=== PATIENT | female | born 1940 | race Two or more races ===

== ENCOUNTER 2022-06-16 15:11 | Inpatient (IN) | payer OTHER ==
[2022-06-16] MEDS ORDERED: OMEPRAZOLE20 MG PO (15:30)
[2022-06-16] MEDS ORDERED: LOSARTAN-HCTZ1 EACH PO (15:30)
--- NOTE | 2022-06-16 15:31 | NUR ---
SE RECIBE PACIENTE ALERTA Y ORIENTADA X3. VIENE POR REFERIDO POR LA DRA. MARY GARCÍA. REFIERE DOLOR ABDOMINAL Y SE OBSERVA EL ABDOMEN DISTENTIDO.SE COLOCA EN HARI SENIA 8
--- NOTE | 2022-06-16 16:34 | NUR ---
MS VERA ORIENTA PTE SOBRE TX MEDICO EL CUAL REFIERE ENTENDER.SE LE EXTRAEN MUESTRAS BAJO MEDIDAS ASEPTICAS.SE CANALIZA Y SE ADMINISTRAN MEDICAMENTOS EMERALD ORDEN MEDICA,SE NOTIFICA CT PENDIENTE.
--- NOTE | 2022-06-16 18:18 | NUR ---
SE REALIZA ADMINISTRACION DE MEDICAMNETOS POR ORDEN MEDICA,. SE ORIENTA A PACIENTE SOBRE USO Y EFECTOS.
[2022-06-21] MEDS ORDERED: DICYCLOMINE HCL20 MG (08:24)
[2022-06-21] MEDS ORDERED: LOSARTAN POTASS50 MG (08:24)
[2022-06-21] MEDS ORDERED: PANTOPRAZOLE SO20 MG (08:25)
[2022-06-21] MEDS ORDERED: ONDANSETRON HCL4 MG (08:25)
[2022-06-21] MEDS ORDERED: FAMOTIDINE20 MG (08:25)
== END 2022-07-20 17:58 | disposition home or self-care (01) | DRG 329 ==
LOC: ER 15:11 → SURG 22:44 → SURH 22:44
PROVIDERS: Surgery; ADMIT Internal Medicine; ATTEND Internal Medicine
PROC: 02HV33Z Insertion of Infusion Device into Superior Vena Cava, Percutaneous Approach (ICD-10-PCS; 2022-06-18)
PROC: 0DBN8ZX Excision of Sigmoid Colon, Via Natural or Artificial Opening Endoscopic, Diagnostic (ICD-10-PCS; 2022-06-29)
PROC: 0D9670Z Drainage of Stomach with Drainage Device, Via Natural or Artificial Opening (ICD-10-PCS; 2022-07-01)
PROC: 0D1L4Z4 Bypass Transverse Colon to Cutaneous, Percutaneous Endoscopic Approach (ICD-10-PCS; principal; 2022-07-07 12:15)
DX: K56.600 Partial intestinal obstruction, unspecified as to cause (principal); G93.41 Metabolic encephalopathy; K65.1 Peritoneal abscess; B37.49 Other urogenital candidiasis; K57.20 Diverticulitis of large intestine with perforation and abscess without bleeding; E87.1 Hypo-osmolality and hyponatremia; F05 Delirium due to known physiological condition; C18.7 Malignant neoplasm of sigmoid colon; K63.5 Polyp of colon; I10 Essential (primary) hypertension; E66.01 Morbid (severe) obesity due to excess calories; R53.81 Other malaise; Z68.38 Body mass index [BMI] 38.0-38.9, adult

== ENCOUNTER 2022-08-13 10:51 | Inpatient (IN) | payer OTHER ==
[~2022-08-13] VITALS: Ht 162.6 cm; Wt 113.4 kg
[~2022-08-13 10:51] MED LIST: DICYCLOMINE HCL20 MG; FAMOTIDINE20 MG; LOSARTAN POTASS50 MG; LOSARTAN-HCTZ1 EACH PO; OMEPRAZOLE20 MG PO; ONDANSETRON HCL4 MG; PANTOPRAZOLE SO20 MG
[2022-08-13] MEDS ORDERED: CIPROFLOXACIN500 MG PO (11:03)
[2022-08-14] MEDS ORDERED: PANTOPRAZOLE SO40 MG (09:26)
[2022-08-14] MEDS ORDERED: LOSARTAN-HCTZ1 EACH (09:26)
[2022-08-14] MEDS ORDERED: BETAMETHASONE D15 G5 (09:26)
[2022-08-14] MEDS ORDERED: FAMOTIDINE20 MG (09:26)
[2022-08-14] MEDS ORDERED: ONDANSETRON HCL4 MG (09:26)
[2022-08-14] MEDS ORDERED: ZOLPIDEM TARTRA10 MG (09:26)
[2022-08-14] MEDS ORDERED: DICYCLOMINE HCL20 MG (09:26)
[2022-08-14] MEDS ORDERED: OMEPRAZOLE20 MG (09:26)
== END 2022-09-06 23:11 | disposition home or self-care (01) | DRG 391 ==
LOC: ER 10:51 → MEDI 17:50 → SEC-K 17:50 → MEDI 08-14 01:05
PROVIDERS: ADMIT Internal Medicine; ATTEND Internal Medicine
PROC: BW21ZZZ Computerized Tomography (CT Scan) of Abdomen and Pelvis (ICD-10-PCS; 2022-08-13)
PROC: 0W9J30Z Drainage of Pelvic Cavity with Drainage Device, Percutaneous Approach (ICD-10-PCS; principal; 2022-08-16)
PROC: BW24YZZ Computerized Tomography (CT Scan) of Chest and Abdomen using Other Contrast (ICD-10-PCS; 2022-08-16)
PROC: 02HV33Z Insertion of Infusion Device into Superior Vena Cava, Percutaneous Approach (ICD-10-PCS; 2022-08-19)
PROC: 0W9J30Z Drainage of Pelvic Cavity with Drainage Device, Percutaneous Approach (ICD-10-PCS; 2022-08-24)
PROC: BW21YZZ Computerized Tomography (CT Scan) of Abdomen and Pelvis using Other Contrast (ICD-10-PCS; 2022-08-30)
PROC: 0W9J3ZX Drainage of Pelvic Cavity, Percutaneous Approach, Diagnostic (ICD-10-PCS; 2022-09-05)
DX: K57.20 Diverticulitis of large intestine with perforation and abscess without bleeding (principal); K65.1 Peritoneal abscess; N39.0 Urinary tract infection, site not specified; E87.1 Hypo-osmolality and hyponatremia; K42.9 Umbilical hernia without obstruction or gangrene; I10 Essential (primary) hypertension; E11.9 Type 2 diabetes mellitus without complications; Z79.4 Long term (current) use of insulin; B96.20 Unspecified Escherichia coli [E. coli] as the cause of diseases classified elsewhere; B96.89 Other specified bacterial agents as the cause of diseases classified elsewhere; E66.01 Morbid (severe) obesity due to excess calories; Z20.822 Contact with and (suspected) exposure to COVID-19; Z93.3 Colostomy status

== ENCOUNTER 2023-08-16 13:00 | Inpatient (IN) | payer OTHER ==
[~2023-08-16] VITALS: Ht 162.6 cm; Wt 189.6 kg
[~2023-08-16 13:00] MED LIST changes: +BETAMETHASONE D15 G5; +CHILDREN'S ASPI81 MG PO; +CIPROFLOXACIN500 MG PO; +COZAAR25 MG PO; +HYOSCYAMINE0.125 M1 SL; +LIPITOR40 MG PO; +LOSARTAN-HCTZ1 EACH; +OMEPRAZOLE20 MG; +PANTOPRAZOLE SO40 MG; +ZOLPIDEM TARTRA10 MG
[2023-08-16 13:53] LABS: HEMATOCRIT 38.2 % (36.0-45.00); HEMOGLOBIN 12.4 g/dL (12.0-15.00); MEAN CELL VOLUME 85.6 fL (80.00-100.00); MEAN CORPUSCULAR HEMOGLOBIN 27.9 pg (27.00-32.0); MEAN CORPUSCULAR HGB CONC 32.6 g/dl (32.0-36.0); PLATELET COUNT 294 K/uL (150-450); RED BLOOD COUNT 4.46 M/uL (4.00-6.00); RED CELL DISTRIBUTION WIDTH 18.9 % (11.5-14.5)
[2023-08-16 14:15] LABS: CALCIUM 9.3 mg/dL (8.5-10.1); CREATININE SERUM 0.99 mg/dL (0.55-1.02); GFR 53.7; POTASSIUM 4.22 mEq/L (3.5-5.1)
[2023-08-16 15:38] LABS: PH,URINE 5.5 (5.0-8.0); URINE APPEARANCE Clear; URINE BACTERIA 439.6 uL (0.0-1933); URINE BILIRRUBIN Negative (NEGATIVE); URINE BLOOD Negative; URINE COLOR Yellow; URINE EPITHELIAL CELLS 29.3 uL (0.0-38.8); URINE GLUCOSE Negative (NEGATIVE); URINE LEUKOCYTE Small; URINE NITRATE Negative; URINE PROTEIN Trace (NEGATIVE); URINE RBC 9.1 uL (0.0-20.8); URINE UROBILINOGEN 0.2 E.U./dl; URINE WBC 34.3 uL (0.0-23.2)
[2023-08-16 19:11] LABS: INR 1.08; PARTIAL THROMBOPLASTIN TIME 28.7 SECONDS (22.0-34.0); PROTHROMBIN TIME 11.3 SECONDS (9.0-11.5)
[2023-08-17 15:41] LABS: CALCIUM 8.4 mg/dL (8.5-10.1); CHOL HDL RATIO 3.3 (0-5.0); CREATININE SERUM 0.79 mg/dL (0.55-1.02); GFR 69.67; POTASSIUM 3.72 mEq/L (3.5-5.1)
[2023-08-20 06:58] LABS: HEMATOCRIT 35.8 % (36.0-45.00); HEMOGLOBIN 11.9 g/dL (12.0-15.00); MEAN CELL VOLUME 84.7 fL (80.00-100.00); MEAN CORPUSCULAR HEMOGLOBIN 28.2 pg (27.00-32.0); MEAN CORPUSCULAR HGB CONC 33.3 g/dl (32.0-36.0); PLATELET COUNT 224 K/uL (150-450); RED BLOOD COUNT 4.22 M/uL (4.00-6.00); RED CELL DISTRIBUTION WIDTH 18.6 % (11.5-14.5)
[2023-08-20 07:20] LABS: INR 1.05; PARTIAL THROMBOPLASTIN TIME 28.9 SECONDS (22.0-34.0)
[2023-08-20 07:58] LABS: ALBUMIN 2.4 gm/dL (3.4-5.0); BILIRUBIN TOTAL 0.38 mg/dL (0.3-1.2); CALCIUM 8.1 mg/dL (8.5-10.1); CHOL HDL RATIO 3.8 (0-5.0); CREATININE SERUM 0.57 mg/dL (0.55-1.02); GFR 101.54; GLOBULINA 3.8 G/DL (2.4-3.5); MAGNESIUM 2.3 mg/dL (1.8-2.4); POTASSIUM 4.39 mEq/L (3.5-5.1); TOTAL PROTEIN 6.2 gm/dL (6.4-8.2)
[2023-08-24 05:37] LABS: HEMATOCRIT 37.3 % (36.0-45.00); HEMOGLOBIN 12.4 g/dL (12.0-15.00); MEAN CORPUSCULAR HEMOGLOBIN 28.3 pg (27.00-32.0); MEAN CORPUSCULAR HGB CONC 33.3 g/dl (32.0-36.0); PLATELET COUNT 214 K/uL (150-450); RED BLOOD COUNT 4.39 M/uL (4.00-6.00); RED CELL DISTRIBUTION WIDTH 17.9 % (11.5-14.5)
[2023-08-24 06:00] LABS: ALBUMIN 2.6 gm/dL (3.4-5.0); BILIRUBIN TOTAL 0.4 mg/dL (0.3-1.2); CALCIUM 8.7 mg/dL (8.5-10.1); CREATININE SERUM 0.59 mg/dL (0.55-1.02); GFR 97.58; GLOBULINA 3.8 G/DL (2.4-3.5); POTASSIUM 4.55 mEq/L (3.5-5.1); TOTAL PROTEIN 6.4 gm/dL (6.4-8.2)
[2023-08-29 07:56] LABS: HEMOGLOBIN 11.6 g/dL (12.0-15.00); MEAN CELL VOLUME 83.8 fL (80.00-100.00); MEAN CORPUSCULAR HEMOGLOBIN 27.8 pg (27.00-32.0); MEAN CORPUSCULAR HGB CONC 33.2 g/dl (32.0-36.0); PLATELET COUNT 196 K/uL (150-450); RED BLOOD COUNT 4.17 M/uL (4.00-6.00)
[2023-08-29 08:38] LABS: ALBUMIN 2.4 gm/dL (3.4-5.0); BILIRUBIN TOTAL 0.57 mg/dL (0.3-1.2); CALCIUM 8.6 mg/dL (8.5-10.1); CREATININE SERUM 0.58 mg/dL (0.55-1.02); GFR 99.53; GLOBULINA 3.6 G/DL (2.4-3.5); POTASSIUM 4.18 mEq/L (3.5-5.1)
[2023-08-29] MEDS ORDERED: METFORMIN HCL500 M4 (10:55)
[2023-08-29] MEDS ORDERED: ATORVASTATIN CA20 MG (10:55)
[2023-08-29] MEDS ORDERED: ST. JOSEPH ASPI81 M2 (10:55)
[2023-09-03 07:10] LABS: ALBUMIN 2.3 gm/dL (3.4-5.0); BILIRUBIN TOTAL 0.4 mg/dL (0.3-1.2); CALCIUM 8.5 mg/dL (8.5-10.1); CREATININE SERUM 0.57 mg/dL (0.55-1.02); GFR 101.54; GLOBULINA 3.7 G/DL (2.4-3.5)
[2023-09-03 07:41] LABS: HEMATOCRIT 33.9 % (36.0-45.00); HEMOGLOBIN 11.3 g/dL (12.0-15.00); MEAN CELL VOLUME 83.2 fL (80.00-100.00); MEAN CORPUSCULAR HEMOGLOBIN 27.8 pg (27.00-32.0); MEAN CORPUSCULAR HGB CONC 33.4 g/dl (32.0-36.0); PLATELET COUNT 245 K/uL (150-450); RED BLOOD COUNT 4.08 M/uL (4.00-6.00); RED CELL DISTRIBUTION WIDTH 17.6 % (11.5-14.5)
[2023-09-08 07:54] LABS: HEMATOCRIT 34.6 % (36.0-45.00); HEMOGLOBIN 11.5 g/dL (12.0-15.00); MEAN CELL VOLUME 82.8 fL (80.00-100.00); MEAN CORPUSCULAR HEMOGLOBIN 27.6 pg (27.00-32.0); MEAN CORPUSCULAR HGB CONC 33.3 g/dl (32.0-36.0); PLATELET COUNT 272 K/uL (150-450); RED BLOOD COUNT 4.18 M/uL (4.00-6.00); RED CELL DISTRIBUTION WIDTH 17.3 % (11.5-14.5)
[2023-09-08 08:04] LABS: ALBUMIN 2.2 gm/dL (3.4-5.0); BILIRUBIN TOTAL 0.37 mg/dL (0.3-1.2); CALCIUM 8.3 mg/dL (8.5-10.1); CREATININE SERUM 0.58 mg/dL (0.55-1.02); GFR 99.53; GLOBULINA 3.7 G/DL (2.4-3.5); POTASSIUM 3.74 mEq/L (3.5-5.1); TOTAL PROTEIN 5.9 gm/dL (6.4-8.2)
[2023-09-23 08:55] LABS: HEMOGLOBIN 11.6 g/dL (12.0-15.00); MEAN CELL VOLUME 81.4 fL (80.00-100.00); MEAN CORPUSCULAR HGB CONC 33.2 g/dl (32.0-36.0); PLATELET COUNT 245 K/uL (150-450); RED CELL DISTRIBUTION WIDTH 17.8 % (11.5-14.5)
[2023-09-23 09:15] LABS: ALBUMIN 2.5 gm/dL (3.4-5.0); BILIRUBIN TOTAL 0.39 mg/dL (0.3-1.2); CALCIUM 8.6 mg/dL (8.5-10.1); CREATININE SERUM 0.55 mg/dL (0.55-1.02); GFR 105.82; GLOBULINA 3.6 G/DL (2.4-3.5); POTASSIUM 3.57 mEq/L (3.5-5.1); TOTAL PROTEIN 6.1 gm/dL (6.4-8.2)
[2023-09-23 09:17] LABS: C-REACTIVE PROTEIN 0.69 MG/DL (0.00-0.29)
[2023-10-01 06:55] LABS: HEMATOCRIT 36.7 % (36.0-45.00); HEMOGLOBIN 12.2 g/dL (12.0-15.00); MEAN CELL VOLUME 82.8 fL (80.00-100.00); MEAN CORPUSCULAR HEMOGLOBIN 27.6 pg (27.00-32.0); MEAN CORPUSCULAR HGB CONC 33.3 g/dl (32.0-36.0); PLATELET COUNT 247 K/uL (150-450); RED BLOOD COUNT 4.43 M/uL (4.00-6.00)
== END 2023-10-07 14:50 | disposition home or self-care (01) | DRG 391 ==
LOC: ER 13:00 → MEDJ 18:15
PROVIDERS: Emergency Medicine; General Practice; Internal Medicine; Specialist; ADMIT Internal Medicine; ATTEND Internal Medicine
PROC: BW21YZZ Computerized Tomography (CT Scan) of Abdomen and Pelvis using Other Contrast (ICD-10-PCS; 2023-08-16)
PROC: 0W9G30Z Drainage of Peritoneal Cavity with Drainage Device, Percutaneous Approach (ICD-10-PCS; principal; 2023-08-17)
PROC: 3E0336Z Introduction of Nutritional Substance into Peripheral Vein, Percutaneous Approach (ICD-10-PCS; 2023-08-17)
PROC: 02HV33Z Insertion of Infusion Device into Superior Vena Cava, Percutaneous Approach (ICD-10-PCS; 2023-08-18)
PROC: BW21YZZ Computerized Tomography (CT Scan) of Abdomen and Pelvis using Other Contrast (ICD-10-PCS; 2023-08-23)
PROC: 0WPFX0Z Removal of Drainage Device from Abdominal Wall, External Approach (ICD-10-PCS; 2023-08-27)
PROC: 0W9G30Z Drainage of Peritoneal Cavity with Drainage Device, Percutaneous Approach (ICD-10-PCS; 2023-08-27)
PROC: BW11YZZ Fluoroscopy of Abdomen and Pelvis using Other Contrast (ICD-10-PCS; 2023-08-29)
PROC: BW21YZZ Computerized Tomography (CT Scan) of Abdomen and Pelvis using Other Contrast (ICD-10-PCS; 2023-09-04)
PROC: 0W9G30Z Drainage of Peritoneal Cavity with Drainage Device, Percutaneous Approach (ICD-10-PCS; 2023-09-05)
PROC: 0WPFX0Z Removal of Drainage Device from Abdominal Wall, External Approach (ICD-10-PCS; 2023-09-05)
PROC: BW21YZZ Computerized Tomography (CT Scan) of Abdomen and Pelvis using Other Contrast (ICD-10-PCS; 2023-09-11)
PROC: 0W9G30Z Drainage of Peritoneal Cavity with Drainage Device, Percutaneous Approach (ICD-10-PCS; 2023-09-14)
PROC: BW21YZZ Computerized Tomography (CT Scan) of Abdomen and Pelvis using Other Contrast (ICD-10-PCS; 2023-09-19)
PROC: BW21YZZ Computerized Tomography (CT Scan) of Abdomen and Pelvis using Other Contrast (ICD-10-PCS; 2023-09-24)
PROC: 0W9G30Z Drainage of Peritoneal Cavity with Drainage Device, Percutaneous Approach (ICD-10-PCS; 2023-09-27)
PROC: 0WPFX0Z Removal of Drainage Device from Abdominal Wall, External Approach (ICD-10-PCS; 2023-09-27)
PROC: BW21YZZ Computerized Tomography (CT Scan) of Abdomen and Pelvis using Other Contrast (ICD-10-PCS; 2023-10-01)
PROC: 0WPFX0Z Removal of Drainage Device from Abdominal Wall, External Approach (ICD-10-PCS; 2023-10-04)
DX: K57.20 Diverticulitis of large intestine with perforation and abscess without bleeding (principal); K65.1 Peritoneal abscess; K63.2 Fistula of intestine; T85.628A Displacement of other specified internal prosthetic devices, implants and grafts, initial encounter; N30.80 Other cystitis without hematuria; E65 Localized adiposity; M79.3 Panniculitis, unspecified; B96.20 Unspecified Escherichia coli [E. coli] as the cause of diseases classified elsewhere; B95.2 Enterococcus as the cause of diseases classified elsewhere; B96.6 Bacteroides fragilis [B. fragilis] as the cause of diseases classified elsewhere; B96.89 Other specified bacterial agents as the cause of diseases classified elsewhere; B96.5 Pseudomonas (aeruginosa) (mallei) (pseudomallei) as the cause of diseases classified elsewhere; B96.29 Other Escherichia coli [E. coli] as the cause of diseases classified elsewhere; Y82.8 Other medical devices associated with adverse incidents; Y92.230 Patient room in hospital as the place of occurrence of the external cause; I10 Essential (primary) hypertension; E11.9 Type 2 diabetes mellitus without complications; Z79.4 Long term (current) use of insulin; Z93.3 Colostomy status; Z74.01 Bed confinement status

== ENCOUNTER 2023-11-23 13:22 | Emergency (ER) | payer OTHER ==
[~2023-11-23] VITALS: Ht 157.5 cm; Wt 83.9 kg
[~2023-11-23 13:22] MED LIST changes: +ATORVASTATIN CA20 MG; +METFORMIN HCL500 M4; +ST. JOSEPH ASPI81 M2
== END 2023-11-23 17:14 | disposition home or self-care (01) ==
LOC: ER 13:22
DX: Z45.2 Encounter for adjustment and management of vascular access device (principal); Z93.3 Colostomy status

== ENCOUNTER 2023-12-24 20:08 | Inpatient (IN) | payer OTHER ==
[~2023-12-24] VITALS: Ht 162.6 cm; Wt 86.2 kg
[2023-12-24] MEDS ORDERED: FAMOTIDINE20 MG PO (20:35)
[2023-12-24] MEDS ORDERED: MEPERIDINE HCL/PF 50 MG/ML VIAL IM ONE (22:30)
[2023-12-24] MEDS ORDERED: TAMSULOSIN HCL 0.4 MG CAP PO ONE (22:30)
[2023-12-24] MEDS ORDERED: HYOSCYAMINE SULFATE 0.125 MG TAB.SUBL SL ONE (22:30)
[2023-12-24] MEDS ORDERED: PROMETHAZINE HCL 25 MG/ML AMPUL IM ONE (22:30)
[2023-12-24 23:05] LABS: MEAN CELL VOLUME 80.1 fL (80.00-100.00); MEAN CORPUSCULAR HGB CONC 33.9 g/dl (32.0-36.0); PLATELET COUNT 458 K/uL (150-450); RED BLOOD COUNT 4.37 M/uL (4.00-6.00); RED CELL DISTRIBUTION WIDTH 17.6 % (11.5-14.5)
[2023-12-24 23:26] LABS: BILIRUBIN TOTAL 0.65 mg/dL (0.3-1.2); CALCIUM 8.8 mg/dL (8.5-10.1); CREATININE SERUM 0.63 mg/dL (0.55-1.02); GFR 90.25; GLOBULINA 5.6 G/DL (2.4-3.5); POTASSIUM 3.94 mEq/L (3.5-5.1); TOTAL PROTEIN 7.6 gm/dL (6.4-8.2)
[2023-12-24 23:38] LABS: HEMOGLOBIN 11.8 g/dL (12.0-15.00)
[2023-12-25] MEDS ORDERED: PIPERACILLIN/TAZOBACTAM SODIUM 3.375 GM VIAL IV STA (03:20)
[2023-12-25 04:18] LABS: PH,URINE 5.5 (5.0-8.0); URINE APPEARANCE Turbid; URINE BILIRRUBIN Small (NEGATIVE); URINE BLOOD Negative; URINE COLOR Dark Yellow; URINE GLUCOSE Negative (NEGATIVE); URINE LEUKOCYTE Small; URINE NITRATE Negative
[2023-12-25 04:19] LABS: URINE BACTERIA 162.5 uL (0.0-1933); URINE EPITHELIAL CELLS 86.7 uL (0.0-38.8); URINE WBC 904.4 uL (0.0-23.2)
[2023-12-25 04:29] LABS: URINE PROTEIN 100 (NEGATIVE)
[2023-12-25] MEDS ORDERED: PIPERACILLIN/TAZOBACTAM SODIUM 3.375 GM in DEXTROSE 5 % IN WATER 100 ML IV SCH (18:10)
[2023-12-25] MEDS ORDERED: ONDANSETRON HCL 4 MG in 0.9 % SODIUM CHLORIDE 50 ML IV PRN (18:15)
[2023-12-25] MEDS ORDERED: 0.9 % SODIUM CHLORIDE 1,000 ML IV SCH (18:15)
[2023-12-25] MEDS ORDERED: MEPERIDINE HCL/PF 25 MG/ML VIAL IM PRN (18:15)
[2023-12-25] MEDS ORDERED: ACETAMINOPHEN 500 MG GEL..CAP PO PRN (18:15)
[2023-12-25 22:30] LABS: D DIMER 1.64 MG/L; INR 1.1; PARTIAL THROMBOPLASTIN TIME 30.3 SECONDS (22.0-34.0); PROTHROMBIN TIME 11.5 SECONDS (9.0-11.5)
[2023-12-26] MEDS ORDERED: FAMOTIDINE/PF 20 MG in 0.9 % SODIUM CHLORIDE 8 ML IV PUSH SCH (09:00)
[2023-12-26] MEDS ORDERED: PANTOPRAZOLE SODIUM 40 MG/VIAL VIAL IV PUSH SCH (10:20)
[2023-12-26] MEDS ORDERED: FUROsemide 20 MG/2 ML VIAL IV SCH (10:22)
[2023-12-26] MEDS ORDERED: LOSARTAN POTASSIUM 50 MG TABLET PO SCH (10:25)
[2023-12-26] MEDS ORDERED: MEROPENEM 500 MG/VIAL VIAL IV SCH (12:00)
[2023-12-26] MEDS ORDERED: fentaNYL CITRATE 50 MCG/ML AMPUL IV PUSH ONE (16:15)
[2023-12-26] MEDS ORDERED: MIDAZOLAM HCL 2 MG/2 ML VIAL IV PUSH ONE (16:15)
[2023-12-26] MEDS ORDERED: fentaNYL CITRATE 50 MCG/ML AMPUL IV ONE (21:45)
[2023-12-27 06:45] LABS: HEMATOCRIT 31.4 % (36.0-45.00); HEMOGLOBIN 10.6 g/dL (12.0-15.00); MEAN CELL VOLUME 81.2 fL (80.00-100.00); MEAN CORPUSCULAR HEMOGLOBIN 27.4 pg (27.00-32.0); MEAN CORPUSCULAR HGB CONC 33.7 g/dl (32.0-36.0); PLATELET COUNT 363 K/uL (150-450); RED BLOOD COUNT 3.87 M/uL (4.00-6.00); RED CELL DISTRIBUTION WIDTH 17.7 % (11.5-14.5)
[2023-12-27 08:31] LABS: PH,URINE 5.5 (5.0-8.0); URINE APPEARANCE Cloudy; URINE BILIRRUBIN Negative (NEGATIVE); URINE BLOOD Large; URINE COLOR Yellow; URINE GLUCOSE Negative (NEGATIVE); URINE LEUKOCYTE Moderate; URINE NITRATE Negative; URINE UROBILINOGEN 0.2 E.U./dl
[2023-12-27 08:36] LABS: URINE BACTERIA 1786.6 uL (0.0-1933); URINE EPITHELIAL CELLS 18.2 uL (0.0-38.8); URINE RBC 296.4 uL (0.0-20.8); URINE WBC 1154.9 uL (0.0-23.2)
[2023-12-27 10:43] LABS: URINE CRYSTALS MODERATE /HPF; URINE PROTEIN 100 (NEGATIVE)
[2023-12-27 10:44] LABS: URINE YEAST MODERATE /hpf
[2023-12-27 15:39] LABS: CALCIUM 8.2 mg/dL (8.5-10.1); CREATININE SERUM 0.67 mg/dL (0.55-1.02); GFR 84.06; POTASSIUM 3.82 mEq/L (3.5-5.1)
[2023-12-28 05:03] LABS: HEMATOCRIT 33.6 % (36.0-45.00); HEMOGLOBIN 11.2 g/dL (12.0-15.00); MEAN CELL VOLUME 80.1 fL (80.00-100.00); MEAN CORPUSCULAR HEMOGLOBIN 26.7 pg (27.00-32.0); MEAN CORPUSCULAR HGB CONC 33.3 g/dl (32.0-36.0); PLATELET COUNT 404 K/uL (150-450); RED BLOOD COUNT 4.19 M/uL (4.00-6.00); RED CELL DISTRIBUTION WIDTH 17.5 % (11.5-14.5)
[2023-12-28 05:12] LABS: CALCIUM 8.2 mg/dL (8.5-10.1); CREATININE SERUM 0.55 mg/dL (0.55-1.02); GFR 105.56; POTASSIUM 3.58 mEq/L (3.5-5.1)
[2023-12-28] MEDS ORDERED: FLUCONAZOLE IN NACL,ISO-OSM 100 ML IV SCH (09:54)
[2023-12-29 08:35] LABS: HEMATOCRIT 34.1 % (36.0-45.00); HEMOGLOBIN 11.2 g/dL (12.0-15.00); MEAN CELL VOLUME 80.5 fL (80.00-100.00); MEAN CORPUSCULAR HEMOGLOBIN 26.4 pg (27.00-32.0); MEAN CORPUSCULAR HGB CONC 32.9 g/dl (32.0-36.0); PLATELET COUNT 373 K/uL (150-450); RED BLOOD COUNT 4.24 M/uL (4.00-6.00); RED CELL DISTRIBUTION WIDTH 17.4 % (11.5-14.5)
[2023-12-29 09:07] LABS: CALCIUM 8.1 mg/dL (8.5-10.1); CREATININE SERUM 0.48 mg/dL (0.55-1.02); GFR 123.51; POTASSIUM 4.05 mEq/L (3.5-5.1)
[2023-12-29] MEDS ORDERED: FUROsemide 20 MG TABLET PO SCH (14:50)
[2023-12-29] MEDS ORDERED: PANTOPRAZOLE SODIUM 40 MG TABLET.DR PO SCH (14:51)
[2024-01-02] MEDS ORDERED: LIPITOR40 MG PO (12:24)
[2024-01-02] MEDS ORDERED: ATORVASTATIN CA20 MG PO (12:24)
[2024-01-02] MEDS ORDERED: LOSARTAN POTASS50 MG PO (12:25)
[2024-01-02] MEDS ORDERED: FAMOTIDINE20 MG PO (12:25)
[2024-01-02] MEDS ORDERED: ATROVENT HFA12.9 GM IH (12:36)
[2024-01-02] MEDS ORDERED: GILTUSS COUGH-118 M1 PO (12:36)
== END 2024-01-02 15:47 | disposition home or self-care (01) | DRG 391 ==
LOC: ER 20:08 → SEC-K 12-25 18:41 → MEDI 12-25 18:41 → MEDJ 12-26 16:06
PROVIDERS: General Practice; ADMIT Internal Medicine; ATTEND Internal Medicine
PROC: 0W9G30Z Drainage of Peritoneal Cavity with Drainage Device, Percutaneous Approach (ICD-10-PCS; principal; 2023-12-26)
PROC: 02HV33Z Insertion of Infusion Device into Superior Vena Cava, Percutaneous Approach (ICD-10-PCS; 2023-12-26)
PROC: BW21ZZZ Computerized Tomography (CT Scan) of Abdomen and Pelvis (ICD-10-PCS; 2023-12-31)
DX: K57.20 Diverticulitis of large intestine with perforation and abscess without bleeding (principal); K65.1 Peritoneal abscess; N32.1 Vesicointestinal fistula; B96.4 Proteus (mirabilis) (morganii) as the cause of diseases classified elsewhere; B96.20 Unspecified Escherichia coli [E. coli] as the cause of diseases classified elsewhere; B95.2 Enterococcus as the cause of diseases classified elsewhere; B96.89 Other specified bacterial agents as the cause of diseases classified elsewhere; E66.01 Morbid (severe) obesity due to excess calories; I10 Essential (primary) hypertension; E11.9 Type 2 diabetes mellitus without complications; Z79.4 Long term (current) use of insulin

== ENCOUNTER 2024-10-04 11:10 | Inpatient (IN) | payer OTHER ==
[~2024-10-04] VITALS: Ht 152.4 cm; Wt 86.2 kg
[~2024-10-04 11:10] MED LIST changes: +ATORVASTATIN CA20 MG PO; +ATROVENT HFA12.9 GM IH; +CARVEDILOL3.125 M1 PO; +FAMOTIDINE20 MG PO; +GILTUSS COUGH-118 M1 PO; +LOSARTAN POTASS50 MG PO; +METFORMIN HCL500 M4 PO; +PAIN RELIEVER500 M2 PO; +PANTOPRAZOLE SO40 MG PO; +POMALYST1 MG PO; +Septra Ds Tablet PO; +XARELTO10 MG PO; +ZOLPIDEM TARTRAT5 MG PO
[2024-10-04] MEDS ORDERED: PROTONIX40 MG (11:27)
[2024-10-04 15:37] LABS: HEMATOCRIT 34.1 % (36.0-45.00); HEMOGLOBIN 11.1 g/dL (12.0-15.00); MEAN CELL VOLUME 78.1 fL (80.00-100.00); MEAN CORPUSCULAR HEMOGLOBIN 25.4 pg (27.00-32.0); MEAN CORPUSCULAR HGB CONC 32.6 g/dl (32.0-36.0); PLATELET COUNT 294 K/uL (150-450); RED BLOOD COUNT 4.36 M/uL (4.00-6.00); RED CELL DISTRIBUTION WIDTH 18.8 % (11.5-14.5)
[2024-10-04 15:50] LABS: ALBUMIN 2.5 gm/dL (3.4-5.0); BILIRUBIN TOTAL 1.21 mg/dL (0.3-1.2); CALCIUM 8.8 mg/dL (8.5-10.1); CREATININE SERUM 0.88 mg/dL (0.55-1.02); GFR 61.22; GLOBULINA 5.2 G/DL (2.4-3.5); POTASSIUM 3.74 mEq/L (3.5-5.1); TOTAL PROTEIN 7.7 gm/dL (6.4-8.2)
[2024-10-04] MEDS ORDERED: METRONIDAZOLE/SODIUM CHLORIDE 500 MG/100 ML PIGGYBACK IV ONE (16:00)
[2024-10-04 17:15] LABS: URINE APPEARANCE Cloudy; URINE BILIRRUBIN Small (NEGATIVE); URINE BLOOD Trace; URINE COLOR Dark Yellow; URINE GLUCOSE Negative (NEGATIVE); URINE KETONE Trace (NEGATIVE); URINE LEUKOCYTE Small; URINE NITRATE Positive
[2024-10-04 17:18] LABS: URINE CAST 20.47 uL (0.0-1.40); URINE EPITHELIAL CELLS 74.2 uL (0.0-38.8); URINE RBC 2.2 uL (0.0-20.8)
[2024-10-04 18:27] LABS: URINE PROTEIN 100 (NEGATIVE)
[2024-10-04 18:28] LABS: URINE CRYSTALS NEGATIVE /HPF
[2024-10-04] MEDS ORDERED: 0.9 % SODIUM CHLORIDE 1,000 ML IV ONE (21:30)
[2024-10-04] MEDS ORDERED: PIPERACILLIN/TAZOBACTAM SODIUM 3.375 GM VIAL IV ONE (21:30)
[2024-10-04] MEDS ORDERED: ACETAMINOPHEN 500 MG GEL..CAP PO PRN (22:15)
[2024-10-04] MEDS ORDERED: 0.9 % SODIUM CHLORIDE 1,000 ML IV SCH (22:15)
[2024-10-04] MEDS ORDERED: INSULIN LISPRO 1,000 UNIT/10 ML UNITS SUBCUTANEO PRN (22:30)
[2024-10-04] MEDS ORDERED: DEXTROSE 50 % IN WATER 0.5 G/ML DISP.SYRIN IV PRN (22:30)
[2024-10-05 00:37] VITALS: BP 96/61; O2SAT 99
[2024-10-05 02:59] VITALS: BP 102/57; O2SAT 96
[2024-10-05] MEDS ORDERED: PIPERACILLIN/TAZOBACTAM SODIUM 3.375 GM in 0.9 % SODIUM CHLORIDE 100 ML IV SCH (06:00)
[2024-10-05 08:00] VITALS: BP 94/58; O2SAT 94
[2024-10-05] MEDS ORDERED: ACETAMINOPHEN 325 MG TABLET PO ONE (08:01)
[2024-10-05] MEDS ORDERED: LOSARTAN/HYDROCHLOROTHIAZIDE 1 UDTAB TABLET PO SCH (09:00)
[2024-10-05] MEDS ORDERED: PANTOPRAZOLE SODIUM 40 MG/VIAL VIAL IV SCH (09:00)
[2024-10-05 11:12] LABS: HEMATOCRIT 31.9 % (36.0-45.00); HEMOGLOBIN 10.1 g/dL (12.0-15.00); MEAN CELL VOLUME 79.8 fL (80.00-100.00); MEAN CORPUSCULAR HEMOGLOBIN 25.4 pg (27.00-32.0); MEAN CORPUSCULAR HGB CONC 31.8 g/dl (32.0-36.0); PLATELET COUNT 256 K/uL (150-450); RED CELL DISTRIBUTION WIDTH 18.4 % (11.5-14.5)
[2024-10-05 12:00] LABS: ALBUMIN 2.2 gm/dL (3.4-5.0); BILIRUBIN TOTAL 0.78 mg/dL (0.3-1.2); CALCIUM 8.4 mg/dL (8.5-10.1); CREATININE SERUM 0.83 mg/dL (0.55-1.02); GFR 65.49; GLOBULINA 4.1 G/DL (2.4-3.5); POTASSIUM 3.99 mEq/L (3.5-5.1); TOTAL PROTEIN 6.3 gm/dL (6.4-8.2)
[2024-10-05 12:14] LABS: C-REACTIVE PROTEIN 22.7 MG/DL (0.00-0.29)
[2024-10-05 15:59] VITALS: BP 91/67; O2SAT 95
[2024-10-06 00:11] VITALS: BP 111/56; O2SAT 98
[2024-10-06 09:35] VITALS: BP 110/61; O2SAT 96
[2024-10-06] MEDS ORDERED: SODIUM CHLORIDE FOR INHALATION 1 VIAL.NEB IH SCH (17:00)
[2024-10-06 17:54] VITALS: BP 112/70; O2SAT 95
[2024-10-06 19:57] LABS: PH,URINE 5.5 (5.0-8.0); URINE APPEARANCE Turbid; URINE BILIRRUBIN Negative (NEGATIVE); URINE BLOOD Moderate; URINE COLOR Yellow; URINE GLUCOSE Negative (NEGATIVE); URINE KETONE Trace (NEGATIVE); URINE LEUKOCYTE Large; URINE NITRATE Negative; URINE UROBILINOGEN 0.2 E.U./dl
[2024-10-06 20:03] LABS: URINE BACTERIA 1829.8 uL (0.0-1933); URINE EPITHELIAL CELLS 21.6 uL (0.0-38.8); URINE RBC 30.1 uL (0.0-20.8)
[2024-10-06 20:18] LABS: URINE CAST 0.44 uL (0.0-1.40); URINE PROTEIN 100 (NEGATIVE); URINE WBC > 5548.3 uL (0.0-23.2)
[2024-10-07 00:58] VITALS: BP 117/67; O2SAT 99
[2024-10-07 08:37] LABS: HEMATOCRIT 29.5 % (36.0-45.00); HEMOGLOBIN 9.7 g/dL (12.0-15.00); MEAN CELL VOLUME 78.6 fL (80.00-100.00); MEAN CORPUSCULAR HEMOGLOBIN 25.8 pg (27.00-32.0); MEAN CORPUSCULAR HGB CONC 32.9 g/dl (32.0-36.0); PLATELET COUNT 290 K/uL (150-450); RED BLOOD COUNT 3.76 M/uL (4.00-6.00); RED CELL DISTRIBUTION WIDTH 18.8 % (11.5-14.5)
[2024-10-07 09:57] VITALS: BP 128/76; O2SAT 97
[2024-10-07 10:00] LABS: ALBUMIN 1.9 gm/dL (3.4-5.0); BILIRUBIN TOTAL 0.31 mg/dL (0.3-1.2); CREATININE SERUM 0.7 mg/dL (0.55-1.02); GFR 79.72; GLOBULINA 4.1 G/DL (2.4-3.5); POTASSIUM 4.03 mEq/L (3.5-5.1)
[2024-10-07 17:23] VITALS: BP 131/85; O2SAT 95
[2024-10-08 01:25] VITALS: BP 128/75; O2SAT 95
[2024-10-08 09:23] VITALS: BP 126/80; O2SAT 98
[2024-10-08 18:38] VITALS: BP 121/72; O2SAT 97
[2024-10-09 02:27] VITALS: BP 138/83; O2SAT 94
[2024-10-09 08:54] VITALS: BP 129/70; O2SAT 99
[2024-10-09 17:14] VITALS: BP 147/77; O2SAT 92
[2024-10-09 17:16] VITALS: BP 141/88; O2SAT 94
[2024-10-10 01:07] VITALS: BP 137/75; O2SAT 98
[2024-10-10] MEDS ORDERED: PANTOPRAZOLE SODIUM 40 MG TABLET.DR PO SCH (09:00)
[2024-10-10 09:25] VITALS: BP 128/71; O2SAT 98
== END 2024-10-10 12:10 | disposition home or self-care (01) | DRG 690 ==
LOC: ER 11:10 → SURG 23:33 → MEDJ 10-06 13:32
PROVIDERS: Emergency Medicine; General Practice; Internal Medicine Infectious Disease; ADMIT Internal Medicine; ATTEND Internal Medicine
PROC: BW24YZZ Computerized Tomography (CT Scan) of Chest and Abdomen using Other Contrast (ICD-10-PCS; principal; 2024-10-04)
PROC: 02HV33Z Insertion of Infusion Device into Superior Vena Cava, Percutaneous Approach (ICD-10-PCS; 2024-10-07)
DX: N39.0 Urinary tract infection, site not specified (principal); N32.1 Vesicointestinal fistula; K57.20 Diverticulitis of large intestine with perforation and abscess without bleeding; B96.20 Unspecified Escherichia coli [E. coli] as the cause of diseases classified elsewhere; E11.9 Type 2 diabetes mellitus without complications; I10 Essential (primary) hypertension; Z93.3 Colostomy status; Z79.84 Long term (current) use of oral hypoglycemic drugs; Z53.1 Procedure and treatment not carried out because of patient's decision for reasons of belief and group pressure